=== PATIENT | female | born 1985 | race Caucasian/White ===

== ENCOUNTER 2019-08-12 16:17 | Outpatient (CLI) | payer OTHER ==
[2019-08-12 17:10] LABS: BASOPHILS % (AUTO) 0.3 % (0-1); EOSINOPHILS % (AUTO) 0 % (0-6); HEMATOCRIT 39.5 % (35.0-45.0); HEMOGLOBIN 13.8 g/dl (12.0-16.0); LYMPHOCYTES # (AUTO) 1.8 X10'3 (1.1-4.8); LYMPHOCYTES % (AUTO) 17.6 % (21-51); MEAN CORPUSCULAR VOLUME 88.6 FL (78-98); MEAN PLATELET VOLUME 8.4 FL (7.4-10.4); MONOCYTES # (AUTO) 0.5 X10'3 (0-0.9); MONOCYTES % (AUTO) 4.5 % (2-12); NEUTROPHILS # (AUTO) 8.1 X10'3 (1.8-7.7); NEUTROPHILS % (AUTO) 77.6 % (42-75); PLATELET COUNT 310 X10'3 (140-440); RED BLOOD COUNT 4.45 X10'6 (4.20-5.60); RED CELL DISTRIBUTION WIDTH 12.8 % (11.5-14.5); WHITE BLOOD COUNT 10.5 X10'3 (4.5-11.0)
== END 2019-08-12 23:59 | disposition home or self-care (01) ==
LOC: LAB 16:17
PROVIDERS: ATTEND Urology
DX: J01.40 Acute pansinusitis, unspecified (principal); L04.0 Acute lymphadenitis of face, head and neck
CPT/HCPCS: 36415; 85025

== ENCOUNTER 2019-11-25 08:51 | Emergency (ER) | payer OTHER ==
[~2019-11-25] VITALS: Ht 157.5 cm; Wt 90.0 kg
[2019-11-25 08:53] VITALS: BP 137/91
[2019-11-25 10:02] LABS: EOSINOPHILS % (AUTO) 0.1 % (0-6); HEMATOCRIT 38.1 % (35.0-45.0); HEMOGLOBIN 12.8 g/dl (12.0-16.0); NEUTROPHILS # (AUTO) 1.8 X10'3 (1.8-7.7); NEUTROPHILS % (AUTO) 16.7 % (42-75); WHITE BLOOD COUNT 11.1 X10'3 (4.5-11.0)
[2019-11-25 10:04] LABS: BASOPHILS % (AUTO) 0.4 % (0-1); LYMPHOCYTES # (AUTO) 8.2 X10'3 (1.1-4.8); LYMPHOCYTES % (AUTO) 74.1 % (21-51); MEAN CORPUSCULAR HEMOGLOBIN 30.2 PG (27.0-31.0); MEAN CORPUSCULAR HGB CONC 33.5 g/dL (33.0-36.5); MEAN CORPUSCULAR VOLUME 90.2 FL (78-98); MONOCYTES % (AUTO) 8.7 % (2-12); PLATELET COUNT 140 X10'3 (140-440); RED BLOOD COUNT 4.23 X10'6 (4.20-5.60); RED CELL DISTRIBUTION WIDTH 13.6 % (11.5-14.5)
[2019-11-25 10:07] LABS: CLARITY,URINE CLOUDY (Clear); COLOR,URINE YELLOW (Yellow); GLUCOSE, URINE NEGATIVE (Neg); KETONES,URINE NEGATIVE (Neg); LEUKOCYTE ESTERASE ,URINE NEGATIVE (Neg); NITRITES, URINE NEGATIVE (Neg); OCCULT BLOOD,URINE SMALL (Neg); PH,URINE 6.5 (4.8-8.0); PROTEIN,URINE NEGATIVE (Neg)
[2019-11-25 10:16] LABS: UA COLLECTION TYPE CLN CATCH MIDSTREAM
[2019-11-25 10:20] LABS: BACTERIA,URINE 2+ /HPF (Neg); RBC,URINE 0-2 /HPF (0-2); SQUAMOUS EPITHELIAL CELL,UR MANY /LPF (FEW); WBC,URINE 0-4 /HPF (0-4)
[2019-11-25 10:22] LABS: ALANINE AMINOTRANSFERASE 1167 U/L (12-78); ALBUMIN 3.5 G/DL (3.4-5.0); ALBUMIN/GLOBULIN RATIO 0.9 (1.1-1.5); ALKALINE PHOSPHATASE 350 IU/L (46-116); ANION GAP 10 (8-16); ASPARTATE AMINO TRANSFERASE 540 U/L (10-37); BILIRUBIN,TOTAL 0.7 MG/DL (0.1-1.0); BLOOD UREA NITROGEN 7 MG/DL (7-18); BUN/CREATININE RATIO 9.1 (6.6-38.0); CALCIUM 8.8 MG/DL (8.5-10.1); CHLORIDE 104 MMOL/L (99-107); CREATININE 0.77 MG/DL (0.40-0.90); GLUCOSE 105 MG/DL (70-104); POTASSIUM 3.5 MMOL/L (3.5-5.1); SODIUM 138 MMOL/L (135-145); TOTAL CARBON DIOXIDE 24.3 MMOL/L (24-32); TOTAL PROTEIN 7.3 G/DL (6.4-8.2); eGFR 87 ML/MIN
[2019-11-25 10:25] LABS: PLATELET ESTIMATE DECREASED; TOTAL CELLS COUNTED 100
[2019-11-25 11:00] LABS: MONOTEST POSITIVE (Neg)
[2019-11-25 13:03] LABS: URINE HCG NEGATIVE (NEG)
== END 2019-11-25 11:27 | disposition home or self-care (01) ==
LOC: ER 08:51
DX: B27.90 Infectious mononucleosis, unspecified without complication (principal); Z88.5 Allergy status to narcotic agent; Z91.040 Latex allergy status
CPT/HCPCS: 36415; 71045; 80053; 81001; 81025; 85025; 86308; 99284